=== PATIENT | male | born 1950 | race Caucasian/White ===

== ENCOUNTER 2024-06-30 07:44 | Emergency (ER) | payer MEDICARE, SELFPAY ==
[2024-06-30 08:03] VITALS: BP 155/70; PULSE 69; RESP 18; TEMP 36.8; O2SAT 99; BMI 22.7
--- NOTE | 2024-06-30 08:14 | ED_ITS ---
HPI - Abdominal Pain General Chief Complaint: Abdominal Pain Stated Complaint: hasn't been able to eat Time Seen by Provider: 06/30/24 08:03 Source: patient Mode of arrival: Ambulatory History of Present Illness HPI narrative: Patient here with . Patient has history of Joshua-en-Y at [facility] 1997. At that time he weighed 450 lb. Patient has had significant weight loss. Patient states he has unintentional weight loss about 30 lb in the past 1 year. He states he can not get into his primary care as they have left the practice. He can not get into GI services until August of this year. Patient has pain when eating. Has had nausea and vomiting. Denies any black or bloody stools. He has a home kit he states to check for occult blood and it has been negative. Patient and are here to get GI referral, I spoke with him we do not have GI services on-call. They have seen various hospitals in the surrounding area and he does have appointment in August for GI services. After reviewing with patient treatment plan here he declined any workup because we do not have GI services. He wishes to leave now. Related Data Allergies Allergy/AdvReac Type Severity Reaction Status Date / Time scopolamine Allergy Verified 06/30/24 08:03 simvastatin Allergy Verified 06/30/24 08:03 Review of Systems Review of Systems Narrative: GENERAL: Negative chills, fatigue, malaise, fever, sweats. HEENT: Negative sinus pain, ear pain, sore throat RESPIRATORY: Negative dyspnea, cough CARDIOVASCULAR: Negative chest pain, palpitations GASTROINTESTINAL: Positive nausea, vomiting, abdominal pain : Negative dysuria, frequency, hematuria MUSCULOSKELETAL: Negative muscle or bony pain SKIN: Negative rash, skin lesions NEUROLOGIC: Negative weakness, numbness ROS Unobtainable: All systems reviewed & are unremarkable except as noted in HPI and below Patient History Social History Smoking Status: Never smoker Smoking Status: Never smoker Exam Narrative Exam Narrative: GENERAL: in no distress, not toxic not dyspneic HEAD: Normocephalic. EYES: Pupils equal round NECK: Trachea midline. CARDIOVASCULAR: Regular rate and rhythm RESPIRATORY: Clear to auscultation. Breath sounds equal bilaterally. No wheezes, rales, or rhonchi. GASTROINTESTINAL: Abdomen soft, mild epigastric tenderness no peritoneal signs, no guarding or rebound. No pain out of portion to exam NEURO: AOx4. SKIN: Warm and dry PSYCH: Not anxious, is cooperative Initial Vital Signs Initial Vital Signs: Vital Signs Temperature 98.2 F 06/30/24 08:03 Pulse Rate 69 06/30/24 08:03 Respiratory Rate 18 06/30/24 08:03 Blood Pressure 155/70 H 06/30/24 08:03 Pulse Oximetry 99 06/30/24 08:03 Oxygen Delivery Method Room Air 06/30/24 08:03 Course Vital Signs Vital signs: Vital Signs - 8 hr 06/30/24 08:03 Temperature 98.2 F Pulse Rate 69 Respiratory Rate 18 Blood Pressure 155/70 H Pulse Oximetry 99 Oxygen Delivery Method Room Air MDM - Abdominal Pain [facility] Narrative Medical decision making narrative: Patient here with . Patient has history of Joshua-en-Y at [facility] 1997. At that time he weighed 450 lb. Patient has had significant weight loss. Patient states he has unintentional weight loss about 30 lb in the past 1 year. He states he can not get into his primary care as they have left the practice. He can not get into GI services until August of this year. Patient has pain when eating. Has had nausea and vomiting. Denies any black or bloody stools. He has a home kit he states to check for occult blood and it has been negative. Patient and are here to get GI referral, I spoke with him we do not have GI services on-call. They have seen various hospitals in the surrounding area and he does have appointment in August for GI services. After reviewing with patient treatment plan here he declined any workup because we do not have GI services. He wishes to leave now. After history and exam, patient declined any laboratory studies or imaging studies. He would like to leave because we do not have GI services on-call. [facility] Medical records reviewed: No recent visit for this complaint Differential considered: Includes but not limited to Lab Test results independently reviewed as above. Pertinent findings: Independently reviewed EKG Imaging studies independently reviewed: Consultations: 8:15 a.m.. Spoke with General surgery, Dr. Oh, he does not do endoscopy for status post Joshua-en-Y. He recommends patient see GI services at [facility], we do not have GI services here at this hospital. Treatments: None Re-evaluations: Reviewed with patient exam findings and treatment plan but he declined any laboratory studies or imaging studies here. Discussion: Appropriate for discharge home. Patient declined any workup here. This is recurrent abdominal chronic pain for over a year. This has been going o n since 1997. Diagnosis: Chronic abdominal pain Discharge Plan Departure Patient Disposition: Home Clinical Impression: Abdominal pain, chronic, epigastric Instructions: DI for Abdominal Pain-Adult Activity Restrictions/Additional Instructions: Please do see your gastroenterology services as scheduled in August. We do not have GI services here on-call. Please do try to keep well hydrated. Continue your home medications. Return if worse if any questions or concerns Stand Alone Forms: Patient Portal/API/Survey
== END 2024-06-30 08:24 | disposition home or self-care (01) ==
PROVIDERS: Emergency Provider Emergency Medicine
DX: R10.13 Epigastric pain (principal); R11.2 Nausea with vomiting, unspecified
CPT/HCPCS: 99281